=== PATIENT | male | born 1995 | race Caucasian/White ===

== ENCOUNTER 2022-11-23 07:00 | Outpatient (CLI) | payer BC ==
[2022-11-24 00:01] LABS: NEISSERIA GONORRHOEAE DNA NEGATIVE (NEGATIVE)
[2022-11-24 00:59] LABS: CHLAMYDIA TRACHOMATIS DNA POSITIVE (NEGATIVE)
== END 2022-11-23 23:59 | disposition home or self-care (01) ==
LOC: LAB.S 07:00
PROVIDERS: ATTEND Physician Assistant
DX: N45.1 Epididymitis (principal)
CPT/HCPCS: 87086; 87491; 87591; 87661